=== PATIENT | male | born 1990 | race Two or more races ===

== ENCOUNTER 2018-12-21 13:02 | Emergency (ER) | payer MEDICAID ==
[~2018-12-21] VITALS: Ht 180.3 cm; Wt 72.6 kg
[2018-12-21 13:10] VITALS: BP 115/72
[2018-12-21 13:42] LABS: BASOPHILS % (AUTO) 0.5 % (0.0-2.0); HEMATOCRIT 34 % (39-51); HEMOGLOBIN 10.8 g/dL (13.5-17.5); LYMPHOCYTES # (AUTO) 0.8 /CMM (0.8-4.8); MEAN CORPUSCULAR HGB CONC 32 g/dl (31.0-36.0); MEAN CORPUSCULAR VOLUME 74 fL (80-96); MONOCYTES # (AUTO) 0.8 /CMM (0.1-1.30); MONOCYTES % (AUTO) 10.4 % (2.0-12.0); NEUTROPHILS # (AUTO) 6.1 /CMM (1.8-8.9); NEUTROPHILS % (AUTO) 76.1 % (43.0-81.0); PLATELET COUNT (AUTO) 430 /CMM (150-450); RED BLOOD CELL COUNT(AUTO) 4.56 MIL/uL (4.5-6.0)
== END 2018-12-21 14:44 | disposition home or self-care (01) ==
LOC: ER 13:02
DX: K60.4 Rectal fistula (principal); Z88.1 Allergy status to other antibiotic agents
CPT/HCPCS: 36415; 85025-TC